=== PATIENT | female | born 1955 | race Caucasian/White ===

== ENCOUNTER → 2016-05-25 | Day surgery (SDC) | payer BC ==
--- NOTE | 2016-05-17 19:21 | HP ---
HISTORY AND PHYSICAL: DATE OF ADMISSION: She will be entering [facility] for same-day surgery, 05/25/16. CHIEF COMPLAINT: Left wrist and hand numbness of the thumb, index, and middle fingers. HISTORY OF PRESENT ILLNESS: She has had problems for 2 years in the above-noted region with numbnes s, tingling, and dropping things from her left hand. She is left-handed and had carpal tunnel surge ry on her right hand several years ago with a nice result. She reports she is okay in her neck, she is okay in her shoulders. PAST MEDICAL HISTORY: Hypertension. PAST SURGICAL HISTORY: She is status post hysterectomy; carpal tunnel, right hand; tonsillectomy. No surgical complications in the past. MEDICATIONS: She is on: 1. Losartan and hydrochlorothiazide 100/25 mg 1 each day. 2. Citalopram 20 mg every other day. ALLERGIES: No allergies to medications. FAMILY HISTORY: Positive for diabetes and cancer. Negative for cardiac. SOCIAL HISTORY: Lives with her spouse. She is an RN. No smoking. Five drinks per week and she en joys walking and knitting. She is left-handed. REVIEW OF SYSTEMS: Not further remarkable. PHYSICAL EXAMINATION GENERAL: She is well nourished, well developed, not acutely distressed. VITAL SIGNS: 5 feet in height, 155 pounds. HEENT: The head is NC/AT. LUNGS: Clear. HEART: Regular. S1, S2 normal. No murmurs or gallops. ABDOMEN: Soft and nontender. I do not appreciate organomegaly. EXTREMITIES: The left radial pulse is 2+. The left wrist has a positive Tinel's over the median ne rve only. Phalen's is positive. Gladys's test is negative. The wrist has full pronation, supi nation, full . Her fist is full. She has altered touch sensation in the left thumb, index, an d middle fingers, and it is normal in the little finger. NEUROLOGIC: Cranial nerves are intact. IMPRESSION: Left carpal tunnel syndrome. RECOMMENDATIONS: We have recommended the surgical care for exploration and decompression of the lef t median nerve, distal forearm, wrist, and hand. Her questions were answered. She may require phys ical therapy afterwards. [id number]/[facility] #: [id number]
[~2016-05-25] MED LIST: Buffered Lidocaine 1% SYR 3ML* 3 ML/SYR SYRINGE INTRADERM ONE; Buffered Lidocaine 1% SYR 3ML* 3 ML/SYR SYRINGE ONE; Bupivacaine 0.25% SDV* 30 ML ONE; Famotidine IV* 10 MG/ML 2 ML (20 mg) IV ONE; Famotidine IV* 10 MG/ML 2 ML (20 mg) ONE; KETAMINE HCL* 50 MG/ML 10 ML VIAL ONE; Labetalol IV* 5 MG/ML 20 ML VIAL ONE; Lidocaine 2% PF* 10 ML AMP ONE; Midazolam* 1 MG/ML 5 ML VIAL (5 MG) ONE; Ondansetron INJ* 2 MG/ML VIAL IV PRN; Propofol* 10 MG/ML 20 ML BTL IV PUSH ONE; ceFAZolin 2 GM PREMIX (*) 2 GM/50 ML BAG IVPB ONE; fentaNYL* 50 MCG/ML 2 ML VIAL (100 MCG VIAL) ONE; oxyCODONE/Acetamin 5/325 MG* TAB PO PRN
[2016-05-25 11:19] VITALS: BP 105/65
--- NOTE | 2016-06-01 08:20 | OP ---
DATE OF OPERATION: 05/25/16 - [facility] DATE OF : 53 SURGICAL CARE: Left wrist and hand. SURGEON: Sawyer Silverio MD SPECIAL EDUCATION DIRECTOR: LEONELA Clemente ANESTHESIOLOGIST: Dr. Jose Baez. ANESTHESIA: MAC. Local anesthetic 0.25% Marcaine left forearm, wrist, and hand - Dr. Silverio. No epinephrine was in the Marcaine. PRE-OP DIAGNOSIS: Left carpal tunnel syndrome. POST-OP DIAGNOSIS: Left carpal tunnel syndrome. OPERATIVE PROCEDURE: Exploration and decompression of the left median nerve distal forearm, wrist, and hand. INDICATIONS: Left carpal tunnel syndrome, pain, numbness and tingling in the left hand and wrist. Carpal tunnel symptoms that have been present for several months, awakening her at night with pain. CONDITION: Stable to the recovery room. ESTIMATED BLOOD LOSS: Nil. DESCRIPTION OF PROCEDURE: The patient was brought to the operating room and left on the hospital stretcher. The left upper extremity was placed on the hand table and the left forearm was wrapped with proximal tourniquet. The left forearm, wrist and hand were prepped and draped in the usual manner for surgical care of the hand. We then did our universal protocol time-out after prepping and draping confirming Rosio Seay and the plan for left carpal tunnel surgery. We all agreed and we proceeded. The left forearm, wrist, and hand were exsanguinated. The forearm tourniquet elevated to 250. The skin and subcu over the surgical region and in the distal forearm and the carpal tunnel were infiltrated with Marcaine 0.25% without epinephrine. The skin incision was about a centimeter and a half in length in an imaginary line, extending the palmaris longus tendon into the palm. The skin and subcu divided down to the palmar fascia. The palmar fascia was divided into the carpal tunnel, and then we worked proximally, dividing the deep antebrachial fascia in continuity with transverse carpal ligament. After cleaning the fascia superficially and on the deep side, the scissors were run up an inch and a half proximal to the skin incision. We then worked distally, dividing the tight structures transverse over the median nerve and its branches to approximately the proximal palmar arch. Once all the transverse structures were divided, the median nerve was nicely decompressed. The median nerve had a typical waistband-like constriction. The radial bursa was clear. A little irrigation was done, and the skin was closed with interrupted 4-0 vertical mattress Prolene sutures. Dressing was done after washing and drying of Betadine soaked release, fluffs, sterile 4x4 pads, 4-inch Beata, 4-inch Webril, and then a 3-inch Waldemar bandage loosely applied with the wrist neutral to slightly extended. The patient returned to the recovery room in stable and satisfactory condition, having tolerated the procedure very well. [id number]/[facility] [place]: [id number]
== END | disposition home or self-care (01) ==
LOC: OR 08:00
PROVIDERS: ATTEND Orthopaedic Surgery
DX: G56.02 Carpal tunnel syndrome, left upper limb (principal); I10 Essential (primary) hypertension
CPT/HCPCS: J0690; J2001; J2250; J2704; J3010